=== PATIENT | male | born 1970 | race Caucasian/White ===

== ENCOUNTER → 2019-11-14 10:00 | Outpatient (CLI) | payer OTHER, SELFPAY ==
--- NOTE | 2019-11-14 | DI.CT.S_ITS ---
PROCEDURE: CT LUMBAR SPINE WO CON INDICATIONS: LOW BACK PAIN LEFT LOWER EXTREMITY PAIN TECHNIQUE: Noncontrast 3 mm thick sections acquired from the T12 level to the sacrum. Sagittal and coronal reformats were constructed. For radiation dose reduction, the following was used: automated exposure control. COMPARISON: [facility], CT, L-SPINE WITHOUT CONTRAST, 07/24/2012, 7:45. [facility], MR, L-SPINE WITHOUT CONTRAST, 07/24/2012, 8:09. [facility], MR, L-SPINE W&WO CONTRAST, 04/09/2013, 15:17. Outside Facility, RG, MRI L-SPINE W/WO CONTRAST, 07/16/2014, 7:47. Outside Facility, [facility], MRI L-SPINE W/O CONTRAST, 06/02/2015, 11:50. [facility], CT, CT THORACIC SPINE WO CON, 11/14/2019, 10:01. [facility], CT, L-SPINE WITH CONTRAST, 07/28/2017, 10:22. FINDINGS: Image quality: Diagnostic Bones: No acute vertebral body compression fractures. No suspicious lytic or blastic bony lesions. Central spinal caliber is of normal overall caliber. Mild sacralization is seen of the L5 level. Mild dextroconvex scoliotic curvature is seen. Mild grade 1 anterolisthesis is seen at L5-S1. T12-L1: Mild loss of disc height is seen. Mild to moderate disc bulge is seen. Mild neural foraminal narrowing is seen. The central canal is widely patent. When comparison is made with the prior examination, these findings are similar. L1-L2: The disc height is well-preserved. Mild disc bulge is seen, with a focal right foraminal disc protrusion, as on series 12 image 29. There is at least moderate right-sided neural foraminal narrowing. Mild left-sided neural foraminal narrowing is seen. Mild central canal narrowing is seen. The right-sided disc protrusion is not seen 2018. L2-L3: The disc height is well-preserved. Mild disc bulge is seen, with a mild central disc protrusion. Mild bilateral neural foraminal narrowing is seen. Mild central canal narrowing is seen. When comparison is made with the prior examination, these findings are similar. L3-L4: The disc height is well preserved. Moderate disc bulge is seen, which is eccentric to the left. There is a central disc protrusion seen. There is at least moderate left-sided and mild to moderate right-sided neural foraminal narrowing seen. Moderate central canal narrowing is seen. These imaging findings have progressed compared to the prior study. L4-L5: The disc height is well-preserved. Mild to moderate disc bulge is seen, which is eccentric to the left side. There is mild bilateral neural foraminal narrowing seen. No significant central canal narrowing is seen. When comparison is made with the prior examination, these findings are similar. L5-S1: Postoperative changes are seen at this level, with bilateral pedicle screws and vertical fixation rods. The screws appear well placed. A disc spacer is seen. No findings of hardware failure or hardware loosening are seen. Moderate disc bulge is seen. There is mild to moderate bilateral neural foraminal narrowing seen. The central canal is widely patent. Soft tissues: No retroperitoneal masses or hematomas. Visualized aorta is normal in caliber. Simple appearing bilateral renal cysts are seen, right larger than left. There is a thoracic spinal stimulator powerpack seen on the left posteriorly. IMPRESSION: Stable L5-S1 postoperative change. Multiple levels of degenerative changes are seen, which are overall mildly progressed compared to 2018. Dextroconvex scoliosis. Left-sided stimulator power pack noted. Dictated by: Mike Masters M.D. on 11/14/2019 at 10:01 Approved by: Mike Masters M.D. on 11/14/2019 at 10:08
--- NOTE | 2019-11-14 | DI.CT.S_ITS ---
PROCEDURE: CT THORACIC SPINE WO CON INDICATIONS: LOW BACK PAIN LEFT LOWER EXTREMITY PAIN TECHNIQUE: Noncontrast 3 mm thick sections acquired through the region of interest in the thoracic spine. Sagittal and coronal reformats were then constructed. For radiation dose reduction, the following was used: automated exposure control. COMPARISON: [facility], CT, CT LUMBAR SPINE WO CON, 11/14/2019, 10:01. FINDINGS: Image quality: Excellent. Bones: There is normal overall bony alignment. No acute vertebral body compression fractures. No suspicious sclerotic or lytic bony lesions. Central spinal canal is of normal overall caliber. Mild degenerative changes are seen, with mild endplate spurring anteriorly, with several levels of bridging plate osteophytes anteriorly and on the right side. Soft tissues: There is a spinal stimulator seen posteriorly, with the leads at T7-T8 level. There is a water density cyst along the medial aspect of the superior right kidney that measures up to 5.8 cm. An additional water density cyst is seen along the posterior aspect of the left kidney that measures 1.3 cm. No paravertebral masses or hematomas. Mild dependent density is seen, which is attributed to atelectasis. Differential diagnosis includes mild pulmonary edema, however. IMPRESSION: T7-T8 spinal cord stimulator leads. Age-appropriate degenerative changes. Incidental note is made of: Simple appearing renal cysts, left larger than right. Dictated by: Mike Masters M.D. on 11/14/2019 at 9:57 Approved by: Mike Masters M.D. on 11/14/2019 at 10:00
== END ==
PROVIDERS: PCP Family Medicine; Referring Provider Orthopaedic Surgery; Visit Provider Orthopaedic Surgery
DX: M96.1 Postlaminectomy syndrome, not elsewhere classified (principal); M79.605 Pain in left leg; M47.814 Spondylosis without myelopathy or radiculopathy, thoracic region; M51.25 Other intervertebral disc displacement, thoracolumbar region; M51.26 Other intervertebral disc displacement, lumbar region; M48.061 Spinal stenosis, lumbar region without neurogenic claudication; M43.17 Spondylolisthesis, lumbosacral region; N28.1 Cyst of kidney, acquired; Z96.82 Presence of neurostimulator
CPT/HCPCS: 72128; 72131

== ENCOUNTER 2022-11-17 11:49 | Emergency (ER) | payer OTHER, SELFPAY ==
[2022-11-17 12:07] VITALS: BP 172/107; PULSE 107; RESP 18; TEMP 37.1; O2SAT 99; BMI 33.0
--- NOTE | 2022-11-17 12:38 | ED.BACK ---
HPI - Back Pain/Injury <Forrest Arenas PA-C - Last Filed: 11/17/22 16:21> General Chief Complaint: Back Pain/Injury Stated Complaint: extreme back pain Time Seen by Provider: 11/17/22 12:34 Source: patient History of Present Illness HPI Narrative: This is a 52-year-old male presents to the emergency department due to mid back pain. Patient states this episode of pain has been affecting him for approximately a month. He states for the last 4 days he has been unable to sleep due to the severity of the pain. He is already taking oxycodone 10 mg t.i.d. as prescribed by his database management specialist in [facility]. He states that he was instructed to come here through ?break through pain?. He denies any new weakness or focal nervous system changes. He is already had a MRI which showed a herniated disc at T9 and has a appointment in 5 days to speak with the database management specialist. He denies any urinary or bowel incontinence, denies any new symptoms since the MRI was taken. Patient has a history of back surgery, L5-S1 secondary fracture. Two months ago he would a stimulator placed scheduled. MRI was ordered which showed a herniated disc at T9. Has had sharp pain since the stimulator was placed. Patient has an appointment next Monday, in 5 days. Already has a oxycodone prescription for 10 mg t.i.d.. Patient complaining of mid back pain and T9. Related Data Home Medications Medication Instructions Recorded Confirmed levothyroxine 200 mcg tablet 0.2 mg PO QDAY ##0 09/11/12 (Synthroid) amitriptyline 50 mg tablet 50 mg PO HS ##0 08/22/16 gabapentin 600 mg tablet 1,200 mg PO TID ##0 08/22/16 (Neurontin) lisinopril 10 mg tablet 10 mg PO QDAY ##0 08/22/16 oxycodone 5 mg tablet 20 mg PO QID ##0 08/22/16 Previous Rx's Medication Instructions Recorded cyclobenzaprine 10 mg tablet 10 mg PO TID #20 tabs 11/17/22 methylprednisolone 4 mg tablets in See Rx Instructions PO .COMPLEX 11/17/22 a dose pack (Medrol (Nando)) #21 ea Allergies Allergy/AdvReac Type Severity Reaction Status Date / Time No Known Drug Allergies Allergy Verified 11/17/22 12:12 Review of Systems <Forrest Arenas PA-C - Last Filed: 11/17/22 16:21> Review of Systems Narrative: GENERAL: Denies chills, fatigue, malaise, fever, sweats. HEENT: Denies sinus pain, ear pain, sore throat, difficulty swallowing, dizziness. RESPIRATORY: Denies dyspnea, cough, wheezing, hemoptysis, sputum. CARDIOVASCULAR: Denies chest pain, palpitations, orthopnea, edema, GASTROINTESTINAL: Denies nausea, vomiting, abdominal pain, diarrhea, constipation, melena. : Denies dysuria, frequency, incontinence, hematuria, urinary retention. MUSCULOSKELETAL: Reports back pain, denies weakness, joint pain, or bony pain SKIN: Denies rash, skin lesions, or other NEUROLOGIC: Denies weakness, headache, numbness, change in speech, confusion, seizures, incoordination. PSYCHIATRIC: No concerning psychosocial issues. 12 point review of systems is negative except for those stated above Patient History <Forrest Arenas PA-C - Last Filed: 11/17/22 16:21> Social History Smoking Status: Never smoker Smoking Status: Never smoker alcohol intake frequency: 0-2 drinks per day Substance Use Type: does not use Exam <SHAISTA Joseph Last Filed: 11/17/22 16:21> Narrative Exam Narrative: GENERAL: Well-developed patient, in mild distress. HEAD: Atraumatic. Normocephalic. EYES: Pupils equal round and reactive. Extraocular motions intact. No scleral icterus. No injection or drainage. ENT: Nose without bleeding, purulent drainage. Throat without erythema, tonsillar hypertrophy or exudate. Airway patent. NECK: Trachea midline. Non tender CARDIOVASCULAR: Regular rate and rhythm without murmurs, gallops, or rubs. . EXTREMITIES: No edema or joint tenderness. BACK: Mild tenderness to palpation to midthoracic spine, . No flank tenderness. NEURO: AOx3. SKIN: No rash or erythema of visible areas Initial Vital Signs Initial Vital Signs: Vital Signs Temperature 98.8 F 11/17/22 12:07 Pulse Rate 107 H 11/17/22 12:07 Respiratory Rate 18 11/17/22 12:07 Blood Pressure 172/107 H 11/17/22 12:07 Pulse Oximetry 99 11/17/22 12:07 Oxygen Delivery Method Room Air 11/17/22 12:07 <Mike Serra DO - Last Filed: 11/17/22 17:55> Initial Vital Signs Initial Vital Signs: Vital Signs Temperature 98.8 F 11/17/22 12:07 Pulse Rate 107 H 11/17/22 12:07 Respiratory Rate 18 11/17/22 12:07 Blood Pressure 172/107 H 11/17/22 12:07 Pulse Oximetry 99 11/17/22 12:07 Oxygen Delivery Method Room Air 11/17/22 12:07 Course <Forrest Arenas PA-C - Last Filed: 11/17/22 16:21> Orders Ordered: Discontinued Medications Cyclobenzaprine HCl (Cyclobenzaprine 10 Mg Tablet) 10 mg PO NOW ONE Stop: 11/17/22 13:55 Last Admin: 11/17/22 14:21 Dose: 10 mg Documented By: MARYANNE Hydromorphone HCl (Hydromorphone 1 Mg Inj) 0.5 mg IM NOW ONE Stop: 11/17/22 12:59 Last Admin: 11/17/22 13:11 Dose: 0.5 mg Documented By: ABIGAIL Hydromorphone HCl (Hydromorphone 1 Mg Inj) 0.5 mg IM NOW ONE Stop: 11/17/22 13:55 Last Admin: 11/17/22 14:20 Dose: 0.5 mg Documented By: MARYANNE Ketorolac Tromethamine (Ketorolac 30 Mg/Ml Vial) 15 mg IM NOW ONE Stop: 11/17/22 12:59 Last Admin: 11/17/22 13:11 Dose: 15 mg Documented By: ABIGAIL Vital Signs Vital signs: Vital Signs - 8 hr 11/17/22 12:07 11/17/22 15:06 Temperature 98.8 F Pulse Rate 107 H 78 Respiratory Rate 18 18 Blood Pressure 172/107 H 160/90 H Pulse Oximetry 99 98 Oxygen Delivery Method Room Air Room Air <Mike Serra DO - Last Filed: 11/17/22 17:55> Orders Ordered: Discontinued Medications Cyclobenzaprine HCl (Cyclobenzaprine 10 Mg Tablet) 10 mg PO NOW ONE Stop: 11/17/22 13:55 Last Admin: 11/17/22 14:21 Dose: 10 mg Documented By: MARYANNE Hydromorphone HCl (Hydromorphone 1 Mg Inj) 0.5 mg IM NOW ONE Stop: 11/17/22 12:59 Last Admin: 11/17/22 13:11 Dose: 0.5 mg Documented By: ABIGAIL Hydromorphone HCl (Hydromorphone 1 Mg Inj) 0.5 mg IM NOW ONE Stop: 11/17/22 13:55 Last Admin: 11/17/22 14:20 Dose: 0.5 mg Documented By: MARYANNE Ketorolac Tromethamine (Ketorolac 30 Mg/Ml Vial) 15 mg IM NOW ONE Stop: 11/17/22 12:59 Last Admin: 11/17/22 13:11 Dose: 15 mg Documented By: ABIGAIL Vital Signs Vital signs: Vital Signs - 8 hr 11/17/22 12:07 11/17/22 15:06 Temperature 98.8 F Pulse Rate 107 H 78 Respiratory Rate 18 18 Blood Pressure 172/107 H 160/90 H Pulse Oximetry 99 98 Oxygen Delivery Method Room Air Room Air MDM - Back Pain/Injury <Forrest Arenas PA-C - Last Filed: 11/17/22 16:21> Lab Data Labs: Urine Dip Bedside Urine Glucose Negative Bedside Urine Bilirubin - Negative Bedside Urine Ketone - Negative Urine Specific [place] 1.010 Bedside Urine Occult Blood - Negative Bedside Urine pH 6.0 Bedside Urine Protein - Negative Bedside Urine Urobilinogen 0.2 Bedside Urine Nitrite - Negative Bedside Urine Leukocytes - Negative Esterase MDM Narrative Medical decision making narrative: MDM * differential diagnosis includes but not limited to vertebral fracture, muscular back pain, spinal stenosis * Prior records reviewed: Patient has not been here for the emergency department for similar symptoms in the past. * My lab interpretation: None obtained * My imgaing interpretation: None obtained * Clinical Decision Rules/Scores evaluated: None * Independent discussions with: None ED Course: This is a 52-year-old male presents emergency department due to acute on chronic worsening back pain. He states he has been unable to sleep for the last 4 days. Offered IM Toradol, prescription for muscle relaxants, as well as a steroid burst to help with the symptoms until he is able to follow up with his database management specialist as he already has a prescription for oxycodone. Patient repeatedly requested IM Dilaudid as he says this worked in the past, extensive tox were had with the patient regarding the risks of opiate dependency. Strongly reinforced the fact that the emergency department is not the appropriate place for repeat visits for opiate pain relief. Eventually a 1 time dose of Dilaudid IM will be given here for the patient as well as Toradol as well as muscle relaxants as well as steroids prescribed. Patient has an appointment with a database management specialist very soon for definitive management. Shared Decision Making: Discussed plan with patient who is comfortable with the plan. Social Considerations: None Disposition: Discharged to home <Mike Serra DO - Last Filed: 11/17/22 17:55> Lab Data Labs: Urine Dip Bedside Urine Glucose Negative Bedside Urine Bilirubin - Negative Bedside Urine Ketone - Negative Urine Specific [place] 1.010 Bedside Urine Occult Blood - Negative Bedside Urine pH 6.0 Bedside Urine Protein - Negative Bedside Urine Urobilinogen 0.2 Bedside Urine Nitrite - Negative Bedside Urine Leukocytes - Negative Esterase Discharge Plan Departure Patient Disposition: Home Clinical Impression: Back pain Instructions: DI for Back Strain or Sprain Activity Restrictions/Additional Instructions: Thank you for coming to the [facility] Emergency Department today. We are able to give you a 1 time dose of Toradol as well as IM Dilaudid here but I strongly recommend you do not return to the emergency department for repeat dosing similar to this. Please use the prescribed medications as well as Tylenol and ibuprofen to help with the back pain until you are able to follow-up with your database management specialist next Monday. I sent your medications to [facility]. I hope you feel better soon. Prescriptions: New methylprednisolone [Medrol (Nando)] 4 mg tablets,dose pack See Rx Instructions .ROUTE .COMPLEX Qty: 21 0RF Rx Instructions: orally per package directions cyclobenzaprine 10 mg tablet 10 mg PO TID Qty: 20 0RF No Action levothyroxine [Synthroid] 200 MCG tablet 0.2 mg PO QDAY Qty: 0 gabapentin [Neurontin] 600 MG tablet 1,200 mg PO TID Qty: 0 lisinopril 10 MG tablet 10 mg PO QDAY Qty: 0 amitriptyline 50 MG tablet 50 mg PO HS Qty: 0 oxycodone 5 MG tablet 20 mg PO QID Qty: 0 Referrals: Zenia Wilson MD [Primary Care Provider] - Stand Alone Forms: Patient Portal/API <Mike Serra DO - Last Filed: 11/17/22 17:55> Cosign ED Attending Cosignature Attestation: Dr Serra Co-Sign Statement: I was available for consultation during this patient's emergency department visit. This chart is signed by myself for administrative purposes only. I did not have direct contact with this patient during this visit. They were seen independently by the APC.
[2022-11-17] MEDS: KETOROLAC 30 MG/ML VIAL 15 MG IM (13:11)
[2022-11-17] MEDS: HYDROMORPHONE 1 MG INJ 0.5 MG IM ×2 (13:11→14:20)
--- NOTE | 2022-11-17 13:21 | PC.NURSE ---
Went to discharge this patient because discharge orders are up. Patient upset and is not feeling any pain relief as pain medication was just administered. Provider informed and waiting 30 minutes to follow up on pain control. Will follow up at 1350 for discharge.
[2022-11-17] MEDS: CYCLOBENZAPRINE 10 MG TABLET PO (14:21)
[2022-11-17 15:06] VITALS: BP 160/90; PULSE 78; RESP 18; O2SAT 98
== END 2022-11-17 15:07 | disposition home or self-care (01) ==
PROVIDERS: Emergency Provider Physician Assistant Medical; PCP Family Medicine
DX: M54.6 Pain in thoracic spine (principal)
CPT/HCPCS: 81003; 96372; 99283; J1170; J1885

== ENCOUNTER → 2023-08-01 12:49 | Outpatient (CLI) | payer OTHER, SELFPAY ==
[2023-08-01 14:24] LABS: Hemoglobin A1C% w Est Avg Glu 5.1 % (4.0-6.0)
[2023-08-01 14:28] LABS: BUN Creatinine Ratio 8.9 (6-22); Blood Urea Nitrogen 9 mg/dL (9-20); Calcium 9.5 mg/dL (8.4-10.2); Carbon Dioxide 27 mmol/L (22-32); Chloride 102 mmol/L (98-107); Estimated Glomerular Filt Rate > 60 mL/min (>60); Glucose 83 mg/dL (70-100); HEMOLYSIS < 15 (0-50); Sodium 139 mmol/L (137-145)
[2023-08-01 14:39] LABS: Add Manual Diff / Slide Review NO; Basophils Absolute Auto 100 /uL (0-100); Basophils Percent Auto 1.2 % (0-2); Eosinophils Absolute Auto 400 /uL (0-450); Eosinophils Percent Auto 4.6 % (2-4); Hemoglobin 12.4 g/dL (13.5-17.5); Lymphocytes Absolute Auto 2100 /uL (1100-4500); Lymphocytes Percent Auto 25.7 % (25-40); Mean Corpuscular HGB Conc 32.6 % (30-36); Mean Corpuscular Hemoglobin 25.3 PG (26-34); Mean Corpuscular Volume 77.5 fL (80-100); Monocytes Absolute Auto 400 /uL (0-900); Monocytes Percent Auto 5.5 % (3-14); Neutrophils Absolute Auto 5100 /uL (1500-7000); Platelet Count 371 X10^3/uL (150-400); Red Cell Distribution Width 16.5 % (11.6-14.8); White Blood Cell Count 8.2 X10^3/uL (4.5-11.0)
== END ==
PROVIDERS: Referring Provider Orthopaedic Surgery Foot and Ankle Surgery; Visit Provider Orthopaedic Surgery Foot and Ankle Surgery
DX: Z01.818 Encounter for other preprocedural examination (principal); Z01.812 Encounter for preprocedural laboratory examination; R73.9 Hyperglycemia, unspecified
CPT/HCPCS: 36415; 80048; 83036; 85025; 93005; 93010

== ENCOUNTER 2024-10-23 11:26 | Emergency (ER) | payer OTHER, SELFPAY ==
[2024-10-23 12:03] VITALS: BP 155/104; PULSE 101; RESP 18; TEMP 36.6; O2SAT 98; BMI 31.1
--- NOTE | 2024-10-23 12:25 | ED_ITS ---
HPI - Male Genitourinary <Kelly Waters PA-C - Last Filed: 10/23/24 14:37> General Chief complaint: Urogenital-Male Stated complaint: Groin pain right side getting worse Time Seen by Provider: 10/23/24 12:14 Source: patient Mode of arrival: Ambulatory History of Present Illness HPI Narrative: Mr. Perry is a pleasant 54-year-old male with a past medical history of chronic low back pain, osteoarthritis, hypothyroidism who presents to the emergency department for right testicular pain x2 weeks. Patient denies any known inciting injury but states that he might have possibly gotten hit in the testicle. Reports that over the last 2 weeks he has had persistent right testicular pain and believes that his right testicle might be slightly more swollen than it usually is. He also states that the last few days he has had some burning with urination and feelings of incomplete bladder emptying. He denies any fevers, chills, abdominal pain, rectal pain, nausea, vomiting, diarrhea, constipation. States the pain is constantly around 7 but that it will occasionally go up to a 15/10 with certain positions. States that he is to a woman is not concerned for sexually transmitted infection. He has not noticed any blood in his urine or ejaculate. He took his normal 10 mg of oxycodone and pregabalin this morning which did not help with the pain. He reports a surgical history of umbilical hernia repair. No medication allergies. Related Data Home Medications Medication Instructions Recorded Confirmed levothyroxine 200 mcg tablet 0.2 mg PO QDAY ##0 09/11/12 10/23/24 (Synthroid) amitriptyline 50 mg tablet 50 mg PO HS ##0 08/22/16 10/05/23 gabapentin 600 mg tablet 1,200 mg PO TID ##0 08/22/16 10/05/23 (Neurontin) oxycodone 5 mg tablet 10 - 20 mg PO QID PRN Pain ##0 08/22/16 10/23/24 acetaminophen 500 mg tablet 500 - 1,000 mg PO Q6H PRN Pain 10/05/23 10/23/24 pregabalin 75 mg capsule (Lyrica) 75 mg PO DAILY 10/23/24 10/23/24 Previous Rx's Medication Instructions Recorded ketorolac 10 mg tablet 10 mg PO Q8H PRN pain #14 tabs 10/23/24 Allergies Allergy/AdvReac Type Severity Reaction Status Date / Time No Known Drug Allergies Allergy Verified 10/23/24 12:05 Review of Systems <Kelly Waters PA-C - Last Filed: 10/23/24 14:37> Review of Systems ROS Unobtainable: All systems reviewed & are unremarkable except as noted in HPI and below Patient History <Kelly Waters PA-C - Last Filed: 10/23/24 14:37> Medical History Anxiety Hypothyroidism JAMI on CPAP Hearing impaired Tinnitus Presence of neurostimulator Neuropathy Surgical History Hx of discectomy H/O vasectomy Hx of hernia repair History of lumbar fusion (2008) Social History household members: spouse, family and children Smoking Status: Unknown if ever smoked alcohol intake: former Smoking Status: Unknown if ever smoked alcohol intake frequency: 0-2 drinks per day Exam <Kelly Waters PA-C - Last Filed: 10/23/24 14:37> Narrative Exam Narrative: GENERAL: 54 year old patient appears stated age. Well-developed patient, in no acute distress. HEAD: Atraumatic. Normocephalic. EYES:No scleral icterus. No injection or drainage. ENT: Nose without bleeding, purulent drainage. NECK: Trachea midline. Cervical ROM intact. CARDIOVASCULAR: Regular rate and rhythm. RESPIRATORY: ?Nonlabored respirations. ?Speaking in clear, full sentences. ?Clear to auscultation. Breath sounds equal bilaterally. No wheezes, rales, or rhonchi. ? GASTROINTESTINAL: Abdomen soft, non-tender, nondistended. Normal external appearing genitalia. Circumcised penis with no lesions or drainage. Tenderness to palpation of right testicle, no palpable mass, no overlying erythema swelling or edema. No tenderness to palpation of the epididymis bilaterally, no tenderness to palpation of the left testicle or scrotum. EXTREMITIES: No edema or joint tenderness. BACK: No CVA tenderness. NEURO: AOx3. ?Clear speech. ?Moves all 4 extremities appropriately. SKIN: No rash or erythema of visible areas Initial Vital Signs Initial Vital Signs: Vital Signs Temperature 97.9 F 10/23/24 12:03 Pulse Rate 101 H 10/23/24 12:03 Respiratory Rate 18 10/23/24 12:03 Blood Pressure 155/104 H 10/23/24 12:03 Pulse Oximetry 98 10/23/24 12:03 Oxygen Delivery Method Room Air 10/23/24 12:03 <Solis Ackerman MD - Last Filed: 10/23/24 20:05> Initial Vital Signs Initial Vital Signs: Vital Signs Temperature 97.9 F 10/23/24 12:03 Pulse Rate 101 H 10/23/24 12:03 Respiratory Rate 18 10/23/24 12:03 Blood Pressure 155/104 H 10/23/24 12:03 Pulse Oximetry 98 10/23/24 12:03 Oxygen Delivery Method Room Air 10/23/24 12:03 Course <Kelly Waters PA-C - Last Filed: 10/23/24 14:37> Orders Ordered: ED Orders 10/23/24 12:09 Chlamydia Gonorrhea PCR -URINE Stat Urinalysis and Microscopic Stat 10/23/24 12:34 US scrotum Stat 10/23/24 12:40 CBC Auto Diff [Complete Blood Count AUTO DIFF] Stat CMP [Comprehensive Metabolic Panel] Stat Discontinued Medications Ketorolac Tromethamine (Ketorolac 30 Mg/Ml Vial) 15 mg IV NOW ONE Stop: 10/23/24 12:35 Last Admin: 10/23/24 12:47 Dose: 15 mg Documented By: REYMUNDO Morphine Sulfate (Morphine 4 Mg/Ml Inj) 4 mg IV NOW ONE Stop: 10/23/24 12:35 Last Admin: 10/23/24 12:47 Dose: 4 mg Documented By: REYMUNDO Morphine Sulfate (Morphine 4 Mg/Ml Inj) 4 mg IV NOW ONE Stop: 10/23/24 13:35 Last Admin: 10/23/24 13:41 Dose: 4 mg Documented By: REYMUNDO Ondansetron HCl (Ondansetron 4 Mg/2 Ml Inj) 4 mg IV NOW ONE Stop: 10/23/24 12:35 Last Admin: 10/23/24 12:47 Dose: 4 mg Documented By: REYMUNDO Vital Signs Vital signs: Vital Signs - 8 hr 10/23/24 14:18 Pulse Rate 80 Respiratory Rate 16 Blood Pressure 162/106 H Pulse Oximetry 97 Oxygen Delivery Method Room Air <Solis Ackerman MD - Last Filed: 10/23/24 20:05> Orders Ordered: ED Orders 10/23/24 12:09 Chlamydia Gonorrhea PCR -URINE Stat Urinalysis and Microscopic Stat 10/23/24 12:34 US scrotum Stat 10/23/24 12:40 CBC Auto Diff [Complete Blood Count AUTO DIFF] Stat CMP [Comprehensive Metabolic Panel] Stat Discontinued Medications Ketorolac Tromethamine (Ketorolac 30 Mg/Ml Vial) 15 mg IV NOW ONE Stop: 10/23/24 12:35 Last Admin: 10/23/24 12:47 Dose: 15 mg Documented By: REYMUNDO Morphine Sulfate (Morphine 4 Mg/Ml Inj) 4 mg IV NOW ONE Stop: 10/23/24 12:35 Last Admin: 10/23/24 12:47 Dose: 4 mg Documented By: REYMUNDO Morphine Sulfate (Morphine 4 Mg/Ml Inj) 4 mg IV NOW ONE Stop: 10/23/24 13:35 Last Admin: 10/23/24 13:41 Dose: 4 mg Documented By: REYMUNDO Ondansetron HCl (Ondansetron 4 Mg/2 Ml Inj) 4 mg IV NOW ONE Stop: 10/23/24 12:35 Last Admin: 10/23/24 12:47 Dose: 4 mg Documented By: REYMUNDO Vital Signs Vital signs: Vital Signs - 8 hr 10/23/24 14:18 Pulse Rate 80 Respiratory Rate 16 Blood Pressure 162/106 H Pulse Oximetry 97 Oxygen Delivery Method Room Air MDM - Male Genitourinary <Kelly Waters PA-C - Last Filed: 10/23/24 14:37> Medical Records Attestation: I reviewed the patient's medical records. Medical records narrative: ED visit 11/17/2022 for back pain. Lab Data 10/23/24 12:40 10/23/24 12:40 Labs: Lab Results 10/23/24 10/23/24 Range/Units 12:09 12:40 WBC 6.2 (4.5-11.0) X10^3/uL RBC 5.02 (4.5-5.9) X10^6/uL Hgb 13.6 (13.5-17.5) g/dL Hct 40.8 L (41-53) % MCV 81.3 (80-100) fL MCH 27.2 (26-34) PG MCHC 33.4 (30-36) % RDW 15.3 H (11.6-14.8) % Plt Count 261 (150-400) X10^3/uL Neut % (Auto) 60.9 (50-75) % Lymph % (Auto) 25.7 (25-40) % Harris % (Auto) 8.1 (3-14) % Eos % (Auto) 4.0 (2-4) % Baso % (Auto) 1.3 (0-2) % Neut # (Auto) 3700 (2052-9495) /uL Lymph # (Auto) 1600 (7505-1291) /uL Harris # (Auto) 500 (0-900) /uL Eos # (Auto) 200 (0-450) /uL Baso # (Auto) 100 (0-100) /uL Sodium 137 (137-145) mmol/L Potassium 4.1 (3.4-5.1) mmol/L Chloride 106 (98-107) mmol/L Carbon Dioxide 22 (22-32) mmol/L BUN 13 (9-20) mg/dL Creatinine 1.10 (0.66-1.25) mg/dL Estimated GFR > 60 (>60) mL/min BUN/Creatinine Ratio 11.8 (6-22) Glucose 118 H (70-100) mg/dL Calcium 9.0 (8.4-10.2) mg/dL Total Bilirubin 0.5 (0.2-1.3) mg/dL AST 22 (17-59) IU/L ALT 16 (<50) IU/L Alkaline Phosphatase 84 (38-126) U/L Total Protein 6.6 (6.3-8.2) g/dL Albumin 4.1 (3.5-5.0) g/dL Globulin 2.5 (1.7-4.1) g/dL Albumin/Globulin Ratio 1.6 (1.0-2.8) Urine Color Yellow Urine Appearance Clear Urine pH 6.0 (4.5-8.0) Ur Specific [place] <=1.005 (1.000-1.035) Urine Protein Negative (Negative) Urine Glucose (UA) Negative (Negative) g/dL Urine Ketones Negative (NEGATIVE) Urine Occult Blood Negative (Negative) Urine Nitrate Negative (Negative) Urine Bilirubin Negative (NEGATIVE) Urine Urobilinogen 0.2 (0.2) E.U./dL Ur Leukocyte Esterase Negative (NEGATIVE) Urine RBC None seen (0-5/HPF) Urine WBC None seen (0-5/HPF) Ur Squamous Epith Cells None seen (0-5/HPF) Urine Bacteria None seen (None) Ur Culture Indicated? Cult not indicated Vol Urine Centrifuged 10ml (spun) Ur Chlamydia DNA (PCR) Not detected N gonorrhoeae DNA (PCR) Not detected Urine Dip Bedside Urine Glucose Negative Bedside Urine Bilirubin - Negative Bedside Urine Ketone - Negative Urine Specific [place] 1.010 Bedside Urine Occult Blood - Negative Bedside Urine pH 6.0 Bedside Urine Protein - Negative Bedside Urine Urobilinogen - Negative Bedside Urine Nitrite - Negative Bedside Urine Leukocytes - Negative Esterase Imaging Data Scrotum US: Radiologist's Impression: PROCEDURE: US SCROTUM INDICATIONS: RIGHT testicular pain x 2 weeks TECHNIQUE: Real-time scanning was performed of the scrotum and testicles, with image documentation. Color and pulse Doppler interrogation was performed of both testicles. COMPARISON: None. FINDINGS: Right: Testicle is normal in size at 4.3 x 1.8 x 3.0 cm, and homogenous in echotexture. Epididymis is normal in overall size and morphology. No hydrocele or varicoceles. Overlying scrotal skin is normal in thickness. Left: Testicle is normal in size at 4.1 x 1.7 x 2.4 cm, and homogeneous in echotexture. Epididymis is normal in overall size and morphology. Simple epididymal cyst measuring 6 mm. No hydrocele or varicoceles. Overlying scrotal skin is normal in thickness. Doppler: Color and pulse Doppler demonstrate normal and symmetric arterial flow in both testicles. IMPRESSION: Normal appearance of the testes and epididymides. MDM Narrative Medical decision making narrative: 54-year-old male with a past medical history of chronic low back pain, osteoarthritis, hypothyroidism who presents to the emergency department for right testicular pain x2 weeks. Differential diagnosis includes but is not limited to orchitis, epididymitis, hydrocele, varicocele, inguinal hernia, UTI, ureterolithiasis, STI, etc. On exam the patient is in no acute distress, nontoxic appearing, vital signs reveal mildly elevated heart rate and blood pressure, afebrile. No chest pain or SOB. Patient has tenderness to palpation of the right testicle with no overlying skin changes swelling or obvious masses or hernia. His abdomen is soft and nontender. He is already taken his typical 10 mg of oxycodone a pregabalin without relief of pain. We will treat persistent pain with Toradol, morphine and Zofran, check CBC CMP and scrotal ultrasound. We will also check urine micro and G/C. Pt requests IV opiods, declines oral. Scrotal ultrasound reveals normal appearance of the testes and epididymides. Labs reveal normal WBC count 6.2, hemoglobin 13.6, normal renal function BUN 13 creatinine 1.1 urinalysis negative for any signs of blood or infection. Negative chlamydia/gonorrhea urine test. Patient reports his symptoms have improved after 2 rounds of morphine and 1 dose of Toradol. At this time there is no sign of poor blood flow, hernia, or infection of the testicle, recommend he follow up with Urology for further management and in the meantime trial Toradol, Tylenol, his normal pain medication in addition to supportive underwear and gentle icing of the scrotum. We discussed that this could possibly also be a form of lumbar radiculopathy however it is very important to be seen by his PCP and urology for further management. We discussed strict ED return precautions. Patient verbalized understanding of all information, is feeling better but still reporting some right testicle pain, is stable for discharge home, ambulatory out of the ED, he has a friend to drive him home. <Solis Ackerman MD - Last Filed: 10/23/24 20:05> Lab Data Labs: Lab Results 10/23/24 10/23/24 Range/Units 12:09 12:40 WBC 6.2 (4.5-11.0) X10^3/uL RBC 5.02 (4.5-5.9) X10^6/uL Hgb 13.6 (13.5-17.5) g/dL Hct 40.8 L (41-53) % MCV 81.3 (80-100) fL MCH 27.2 (26-34) PG MCHC 33.4 (30-36) % RDW 15.3 H (11.6-14.8) % Plt Count 261 (150-400) X10^3/uL Neut % (Auto) 60.9 (50-75) % Lymph % (Auto) 25.7 (25-40) % Harris % (Auto) 8.1 (3-14) % Eos % (Auto) 4.0 (2-4) % Baso % (Auto) 1.3 (0-2) % Neut # (Auto) 3700 (0778-6306) /uL Lymph # (Auto) 1600 (3022-3804) /uL Harris # (Auto) 500 (0-900) /uL Eos # (Auto) 200 (0-450) /uL Baso # (Auto) 100 (0-100) /uL Sodium 137 (137-145) mmol/L Potassium 4.1 (3.4-5.1) mmol/L Chloride 106 (98-107) mmol/L Carbon Dioxide 22 (22-32) mmol/L BUN 13 (9-20) mg/dL Creatinine 1.10 (0.66-1.25) mg/dL Estimated GFR > 60 (>60) mL/min BUN/Creatinine Ratio 11.8 (6-22) Glucose 118 H (70-100) mg/dL Calcium 9.0 (8.4-10.2) mg/dL Total Bilirubin 0.5 (0.2-1.3) mg/dL AST 22 (17-59) IU/L ALT 16 (<50) IU/L Alkaline Phosphatase 84 (38-126) U/L Total Protein 6.6 (6.3-8.2) g/dL Albumin 4.1 (3.5-5.0) g/dL Globulin 2.5 (1.7-4.1) g/dL Albumin/Globulin Ratio 1.6 (1.0-2.8) Urine Color Yellow Urine Appearance Clear Urine pH 6.0 (4.5-8.0) Ur Specific [place] <=1.005 (1.000-1.035) Urine Protein Negative (Negative) Urine Glucose (UA) Negative (Negative) g/dL Urine Ketones Negative (NEGATIVE) Urine Occult Blood Negative (Negative) Urine Nitrate Negative (Negative) Urine Bilirubin Negative (NEGATIVE) Urine Urobilinogen 0.2 (0.2) E.U./dL Ur Leukocyte Esterase Negative (NEGATIVE) Urine RBC None seen (0-5/HPF) Urine WBC None seen (0-5/HPF) Ur Squamous Epith Cells None seen (0-5/HPF) Urine Bacteria None seen (None) Ur Culture Indicated? Cult not indicated Vol Urine Centrifuged 10ml (spun) Ur Chlamydia DNA (PCR) Not detected N gonorrhoeae DNA (PCR) Not detected Urine Dip Bedside Urine Glucose Negative Bedside Urine Bilirubin - Negative Bedside Urine Ketone - Negative Urine Specific [place] 1.010 Bedside Urine Occult Blood - Negative Bedside Urine pH 6.0 Bedside Urine Protein - Negative Bedside Urine Urobilinogen - Negative Bedside Urine Nitrite - Negative Bedside Urine Leukocytes - Negative Esterase Discharge Plan Departure Patient Disposition: Home Clinical Impression: Right testicular pain Instructions: DI for Testicular Pain Activity Restrictions/Additional Instructions: Today, we completed a work up for right testicular pain. Sometimes, we do not always find the cause for your symptoms in one ER visit. The findings on your exam today and on your blood work and imaging is reassuring. At this time, it is not 100% certain what is causing your symptoms, but we feel you can be discharged from the emergency department. It is possible this may worsen or you may get better. Please, if you get worse or your symptoms change, return to the emergency department. Otherwise, please follow up with your primary care doctor in 1-2 days or any of the specialists we have provided or recommended. Please continue taking your normal pain medications in addition to the prescribed ketorolac/Toradol and [id number] Tylenol. Please wear supportive underwear and gently ice the scrotum if needed for pain. Please call to schedule an appointment with [facility] Dr. Aguilera or Dr. Jordan for further evaluation of your right testicular pain. Return to the emergency department immediately if you develop any new or worsening symptoms, fevers, redness, swelling, or changes in urination. Please follow up with your primary care doctor within the next 2-3 days for ER follow-up. (If you do not have a PCP you can call [phone]. ?to schedule an appointment with an [facility] Primary Care Provider) IF YOU DEVELOP ANY NEW OR WORSENING SYMPTOMS, RETURN TO THE ER! Please read the attached instructions, they highlight more specific treatments and interventions for you at home. Thank you for letting me participate in your care, Kelly Waters PA-C Prescriptions: New ketorolac 10 mg tablet 10 mg PO Q8H PRN (Reason: pain) Qty: 14 0RF Rx Instructions: maximum total duration of 5 days from all oral, intranasal, or parenteral formulations No Action levothyroxine [Synthroid] 200 MCG tablet 0.2 mg PO QDAY Qty: 0 gabapentin [Neurontin] 600 MG tablet 1,200 mg PO TID Qty: 0 amitriptyline 50 MG tablet 50 mg PO HS Qty: 0 oxycodone 5 MG tablet 10 - 20 mg PO QID PRN (Reason: Pain) Qty: 0 acetaminophen 500 mg Tablet 500 - 1,000 mg PO Q6H PRN (Reason: Pain) pregabalin [Lyrica] 75 mg Capsule 75 mg PO DAILY Stand Alone Forms: Patient Portal/API/Survey ED Sign-out <Solis Ackerman MD - Last Filed: 10/23/24 20:05> Cosign ED Attending Cosignature Attestation: I was immediately available in the department for consultation. This documentation has been reviewed and I agree with assessment and plan. Supervised by Solis Ackerman MD
--- NOTE | 2024-10-23 12:34 | DI.US.S_ITS ---
PROCEDURE: US SCROTUM INDICATIONS: RIGHT testicular pain x 2 weeks TECHNIQUE: Real-time scanning was performed of the scrotum and testicles, with image documentation. Color and pulse Doppler interrogation was performed of both testicles. COMPARISON: None. FINDINGS: Right: Testicle is normal in size at 4.3 x 1.8 x 3.0 cm, and homogenous in echotexture. Epididymis is normal in overall size and morphology. No hydrocele or varicoceles. Overlying scrotal skin is normal in thickness. Left: Testicle is normal in size at 4.1 x 1.7 x 2.4 cm, and homogeneous in echotexture. Epididymis is normal in overall size and morphology. Simple epididymal cyst measuring 6 mm. No hydrocele or varicoceles. Overlying scrotal skin is normal in thickness. Doppler: Color and pulse Doppler demonstrate normal and symmetric arterial flow in both testicles. IMPRESSION: Normal appearance of the testes and epididymides. Dictated by: Pipo Day M.D. on 10/23/2024 at 13:38 Approved by: Pipo Day M.D. on 10/23/2024 at 13:39
[2024-10-23 12:41] LABS: Appearance Urine UA CLEAR; Bilirubin Urine UA NEGATIVE (NEGATIVE); Color Urine UA YELLOW; Glucose Urine UA NEGATIVE (Negative); Ketones Urine UA NEGATIVE (NEGATIVE); Leukocyte Esterase Urine UA NEGATIVE (NEGATIVE); Nitrite Urine UA NEGATIVE (Negative); Occult Blood Urine UA NEGATIVE (Negative); Protein Urine UA NEGATIVE (Negative); Specific Gravity Urine UA <=1.005 (1.000-1.035); Urobilinogen Urine UA 0.2 E.U./dL (0.2)
[2024-10-23 12:44] LABS: Urine Volume 10mL (spun)
[2024-10-23 12:45] LABS: Bacteria Urine None Seen; Culture Indicated Urine Cult Not Indicated; RBC Urine None Seen (0-5/HPF); Squamous Epithelial Cell Urine None Seen (0-5/HPF); WBC Urine None Seen (0-5/HPF)
[2024-10-23] MEDS: MORPHINE 4 MG/ML INJ IV ×2 (12:47→13:41)
[2024-10-23] MEDS: ONDANSETRON 4 MG/2 ML INJ IV (12:47)
[2024-10-23] MEDS: KETOROLAC 30 MG/ML VIAL 15 MG IV (12:47)
[2024-10-23 13:03] LABS: Add Manual Diff / Slide Review NO; Basophils Absolute Auto 100 /uL (0-100); Basophils Percent Auto 1.3 % (0-2); Eosinophils Absolute Auto 200 /uL (0-450); Hematocrit 40.8 % (41-53); Hemoglobin 13.6 g/dL (13.5-17.5); Lymphocytes Absolute Auto 1600 /uL (1100-4500); Lymphocytes Percent Auto 25.7 % (25-40); Mean Corpuscular HGB Conc 33.4 % (30-36); Mean Corpuscular Hemoglobin 27.2 PG (26-34); Mean Corpuscular Volume 81.3 fL (80-100); Monocytes Absolute Auto 500 /uL (0-900); Monocytes Percent Auto 8.1 % (3-14); Neutrophils Absolute Auto 3700 /uL (1500-7000); Neutrophils Percent Auto 60.9 % (50-75); Platelet Count 261 X10^3/uL (150-400); Red Blood Cell Count 5.02 X10^6/uL (4.5-5.9); Red Cell Distribution Width 15.3 % (11.6-14.8); White Blood Cell Count 6.2 X10^3/uL (4.5-11.0)
[2024-10-23 13:16] LABS: Alanine Aminotransferase 16 IU/L (<50); Albumin 4.1 g/dL (3.5-5.0); Albumin Globulin Ratio 1.6 (1.0-2.8); Alkaline Phosphatase 84 U/L (38-126); Aspartate Aminotransferase 22 IU/L (17-59); BUN Creatinine Ratio 11.8 (6-22); Bilirubin Total 0.5 mg/dL (0.2-1.3); Blood Urea Nitrogen 13 mg/dL (9-20); Carbon Dioxide 22 mmol/L (22-32); Chloride 106 mmol/L (98-107); Estimated Glomerular Filt Rate > 60 mL/min (>60); Globulin 2.5 g/dL (1.7-4.1); Glucose 118 mg/dL (70-100); HEMOLYSIS < 15 (0-50); Potassium 4.1 mmol/L (3.4-5.1); Sodium 137 mmol/L (137-145); Total Protein 6.6 g/dL (6.3-8.2)
--- NOTE | 2024-10-23 13:30 | PC.NURSE ---
Pt asking for more pain medication; pa kodi made aware
--- NOTE | 2024-10-23 13:31 | PC.NURSE ---
Pt reports pain deep in scrotum. Stating it shoots to his bottom. Pt denies burning when peeing but states it hurts to pee. Denies fevers. Denies surgery to scrotum except for hernia surgery. Pt reports he is on chronic pain medication for back pain. Pt denies any new sexual partners.Pt reports he has no discharge from his penis. Reports testicle is larger on right side. Upon examination with PA the testicles appear symmetrical; no swelling or redness noted. No deformities or bruising noted.
[2024-10-23 14:04] LABS: Urine Chlamydia NOT DETECTED; Urine N gonorrhoeae NOT DETECTED
--- NOTE | 2024-10-23 14:16 | PC.NURSE ---
Pt reports he is frustrated. When asked what pt is frustrated about he states it has to do with his pain. Pt asks when things are not found are they just suppose to sit at home and not progress to feeling better? Pt informed we gave a urology consult and he will need to follow up with PCP for possible outpatient tests. Offered to pt to go straight to urology clinic next door to schedule appointment. 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 Pt states he takes narcotics at home as well.
[2024-10-23 14:18] VITALS: BP 162/106; PULSE 80; RESP 16; O2SAT 97
== END 2024-10-23 14:19 | disposition home or self-care (01) ==
PROVIDERS: Emergency Provider Physician Assistant
DX: N50.811 Right testicular pain (principal)
CPT/HCPCS: 76870; 80053; 81001; 81003; 85025; 87491; 87591; 93975; 96374; 96375; 96376; 99283; 99284; J1885; J2270; J2405